=== PATIENT | female | born 2000 | race Caucasian/White ===

== ENCOUNTER 2021-02-01 15:01 | Emergency (ER) | payer OTHER, SELFPAY ==
[2021-02-01 15:12] VITALS: BP 103/75; PULSE 89; RESP 18; TEMP 36.4; O2SAT 98; BMI 41.9
[2021-02-01 17:58] VITALS: BP 124/74; PULSE 90; RESP 12; O2SAT 100
--- NOTE | 2021-02-01 18:40 | ED.FEMALEGU ---
HPI - Female Genitourinary General Chief complaint: Urogenital-Female Stated complaint: VAG ISSUES Time Seen by Provider: 02/01/21 17:55 Source: patient Mode of arrival: ambulatory Limitations: no limitations History of Present Illness HPI Narrative: 20 y/o female presenting with vaginal itching, burning and white discharge for the last 8 days. She used OTC intravaginal cream x7 days with improvement in symptoms however once she stopped treatment her symptoms returned. She denies being sexually active since last September. No chance of . No abdominal pain, fever, chills, N/V. MD elicited complaint: vaginal discharge and genital itching Onset (ago): week(s) (1) Location of symptoms: external genitalia and vaginal Severity: moderate Female Urogenital Radiation: Non-Radiating Severity scale (1-10): 6 Quality of pain: burning Consistency: constant Vaginal discharge: white Vaginal bleeding: none Exacerbating factors: urination Relieving factors: medication Associated symptoms: denies other symptoms Treatment prior to arrival: OTC vaginal cream Sexual activity: No Patient : No Related Data Previous Rx's Medication Instructions Recorded cefuroxime axetil 250 mg PO BID #10 tab 02/01/21 clotrimazole-betamethasone 1 appl TOPICAL BID 7 Days #15 g 02/01/21 fluconazole [Diflucan] 150 mg PO DAILY #1 tab 02/01/21 Allergies Allergy/AdvReac Type Severity Reaction Status Date / Time No Known Allergies Allergy Verified 02/01/21 15:11 [No Known Allergies*] Review of Systems Review of Systems: Constitutional: No Fever, No Chills ENT/Mouth: No sore throat, No Rhinorrhea, No Swallowing Difficulty Eyes: No Eye Pain, No Swelling, No Redness Cardiovascular: No Chest Pain, No SOB, No Orthopnea, No Edema Respiratory: No Cough, No Sputum, No Wheezing, No dyspnea Gastrointestinal: No Nausea, No Vomiting, No Diarrhea, No abdominal Pain, No Hematochezia, No Melena Genitourinary: No Dysuria, No Urinary Frequency, No Hematuria Musculoskeletal: No joint pain, No Myalgias Skin: No Skin Lesions, No rash Neuro: No Weakness, No Numbness, No Dizziness, No Headache Psych: No Anxiety/Panic, No Depression Heme/Lymph: No Bruising, No Lymphadenopathy Endocrine: No Polyuria, No Polydipsia PMFSH Past Medical History Medical History (Updated 02/01/21 @ 19:59 by AMRIK Landry) Patient denies medical problems Social History Social History Advance Directives: No Advance Directives Information Provided: Yes Physical Exam Vital Signs: Vital Signs: Last Vital Signs Temp 97.6 F 02/01/21 15:12 Pulse 90 02/01/21 17:58 Resp 12 02/01/21 17:58 BP 124/74 02/01/21 17:58 Pulse Ox 100 02/01/21 17:58 Body Mass Index 41.9 Appearance: Alert. Oriented X3. No acute distress. HEENT: normal inspection. Neck: Normal inspection. Neck supple. CVS: Normal heart rate and rhythm. Pulses normal. Respiratory: No respiratory distress. Breath sounds normal. Abdomen: Soft and nontender. +BS x4 : external genitalia are slightly erythematous, primarily the labia minora, scant amount of white thick discharge at introitus. Skin: Skin warm and dry. Normal skin color. Normal skin turgor. No rashes. Extremities: No lower extremity edema. Neuro: Oriented X 3. Non-focal. Course Course Course Narrative: 20 y/o female presenting with vaginal itching and white discharge - exam and clinical picture consistent with vulvavaginal candiasis - will treat with PO diflucan now. Will check UA for possible UTI as well. Reevaluation(s) Reevaluation #1: UA is positive for infection - will also add ceftin for treatment. Additional dose of diflucan sent to the pharmacy if symptoms persist in 3 days. Patient expressed understanding. MDM - Female Genitourinary Lab Data Labs: Lab Results 02/01/21 02/01/21 Range/Units 18:02 18:02 Urine Color YELLOW Urine Appearance TURBID Urine pH 6.0 (5.0-8.0) Ur Specific [place] >= 1.030 H (1.005-1.025) Urine Protein TRACE (NEG-TRACE) MG/DL Urine Glucose (UA) NEG (NEG) MG/DL Urine Ketones 5 (NEG) MG/DL Urine Blood 1+ H (NEG) Urine Nitrite NEG (NEG) Ur Leukocyte Esterase 1+ H (NEG) Urine RBC 1-4 (0) /HPF Urine WBC 10-14 H (0-4) /HPF Ur Squamous Epith Cells TRACE /LPF Amorphous Sediment 1+ /LPF Urine Bacteria 3+ /LPF Urine Test NEGATIVE (NEGATIVE) Critical Care Time Critical Care Time Critical Care Time: No Discharge Plan Discharge Clinical Impression: Vulvovaginal candidiasis UTI (urinary tract infection) Qualifiers: Urinary tract infection type: acute cystitis Hematuria presence: with hematuria Qualified Code(s): N30.01 - Acute cystitis with hematuria Patient Disposition: Home, Self-Care Instructions: Urinary Tract Infection in Women (ED), Yeast Infection (ED) Additional Instructions: Your urine test showed evidence of a urinary tract infection - take the prescribed antibiotics for this. Drink plenty of water to help flush the infection out of your bladder. You were treated today for a yeast infection. If you continue to have symptoms in 3 days take another dose - this was sent to your pharmacy. Use the prescribed topical cream for 1 week to help with itching and burning. Do not have any sexual contact until all of your symptoms are resolved. If you have worsening symptoms come back to the ER for further evaluation. Prescriptions: New fluconazole [Diflucan] 150 mg tablet 150 mg PO DAILY Qty: 1 RF: 0 clotrimazole-betamethasone 1-0.05 % cream 1 appl topical BID 7 Days Qty: 15 RF: 0 cefuroxime axetil 250 mg tablet 250 mg PO BID Qty: 10 RF: 0 Interventions: ED Discharge Assessment Last Done: 02/01/21 20:07 Discharge Date/Time: 02/01/21 20:07
[2021-02-01] MEDS: Fluconazole 150 MG TABLET PO (18:52)
[2021-02-01 18:54] LABS: Glucose Urine UA NEG (NEG); Leukocyte Esterase Urine 1+ (NEG); Nitrite Urine NEG (NEG); Specific Gravity - Urine >= 1.030 (1.005-1.025); UACC Culture Trigger YES; Urine Blood 1+ (NEG); Urine Ketones 5 MG/DL (NEG); Urine Protein TRACE MG/DL (NEG-TRACE)
[2021-02-01 19:04] LABS: Appearance Urine TURBID; Color Urine YELLOW
[2021-02-01 19:10] LABS: UPreg QC Valid YES; Urine Pregnancy NEGATIVE (NEGATIVE)
[2021-02-01 19:31] LABS: Bacteria Urine 3+ /LPF; Squamous Epithelial Cell Urine TRACE /LPF
[2021-02-01 19:33] LABS: Amorphous Sediment Urine 1+ /LPF
[2021-02-02 09:19] LABS: CT PCR DETECTED (Not Detect.); NG PCR NOT DETECTED (Not Detect.)
== END 2021-02-01 20:07 | disposition home or self-care (01) ==
PROVIDERS: Physician Assistant; Emergency Provider Emergency Medicine
DX: B37.3 Candidiasis of vulva and vagina (principal); N30.01 Acute cystitis with hematuria; Z79.899 Other long term (current) drug therapy
CPT/HCPCS: 81001; 81003; 81025; 87086; 87147; 87491; 87591; 99284